=== PATIENT | female | born 1990 | race African-American/Black ===

== ENCOUNTER 2024-10-11 22:10 | Emergency (ER) | payer OTHER ==
[2024-10-11] MEDS ORDERED: Sodium Chloride 0.9% 10 ML Syringe FLUSH PRN (22:36)
[2024-10-11] MEDS: HYDROmorphone 0.5 MG/0.5 ML Syringe IVPUSH ONE ×2 (22:58→23:44)
[2024-10-12] MEDS: Take Home: traMADol 50 MG, 4 Tab Pack PO ONE (00:30)
== END 2024-10-12 00:38 | disposition home or self-care (01) ==
LOC: VM.ED 22:10
DX: S49.91XA Unspecified injury of right shoulder and upper arm, initial encounter (principal); Z88.8 Allergy status to other drugs, medicaments and biological substances; V18.0XXA Pedal cycle driver injured in noncollision transport accident in nontraffic accident, initial encounter
CPT/HCPCS: 72125; 73030; 96374; 96376; 99285; A9270

== ENCOUNTER 2024-10-15 21:57 | Emergency (ER) | payer SELFPAY ==
[2024-10-15] MEDS ORDERED: Ketorolac 30 MG/ML SDV IM ONE (22:09)
[2024-10-15] MEDS: Take Home: traMADol 50 MG, 4 Tab Pack PO ONE (22:20)
== END 2024-10-15 22:26 | disposition home or self-care (01) ==
LOC: VM.ED 21:57
DX: S43.101A Unspecified dislocation of right acromioclavicular joint, initial encounter (principal); Z88.8 Allergy status to other drugs, medicaments and biological substances; V18.0XXA Pedal cycle driver injured in noncollision transport accident in nontraffic accident, initial encounter
CPT/HCPCS: 99283; A9270

== ENCOUNTER 2024-11-01 21:57 | Emergency (ER) | payer SELFPAY ==
[2024-11-01] MEDS ORDERED: Ketorolac 30 MG/ML SDV IM ONE (22:16)
[2024-11-01] MEDS: traMADol 50 MG Tab PO ONE (22:49)
[2024-11-01] MEDS: Take Home: traMADol 50 MG, 4 Tab Pack PO ONE (23:43)
== END 2024-11-01 23:48 | disposition home or self-care (01) ==
LOC: VM.ED 21:57
DX: S43.101A Unspecified dislocation of right acromioclavicular joint, initial encounter (principal); Z88.6 Allergy status to analgesic agent; W22.8XXA Striking against or struck by other objects, initial encounter
CPT/HCPCS: 73030-RT; 99283; A9270-GY

== ENCOUNTER 2024-11-03 14:57 | Emergency (ER) | payer SELFPAY ==
[2024-11-03] MEDS: Acetaminophen/HYDROcodone 325-5 MG Tab PO ONE (15:13)
[2024-11-03] MEDS: traMADol 50 MG Tab PO ONE (15:19)
== END 2024-11-03 16:24 | disposition home or self-care (01) ==
LOC: VM.ED 14:57
DX: M25.511 Pain in right shoulder (principal); S43.101D Unspecified dislocation of right acromioclavicular joint, subsequent encounter; Z88.6 Allergy status to analgesic agent
CPT/HCPCS: 73200; 99283; A9270

== ENCOUNTER 2025-03-17 19:19 | Emergency (ER) | payer SELFPAY ==
[2025-03-17] MEDS: Acetaminophen/HYDROcodone 325-5 MG Tab PO ONE (19:51)
== END 2025-03-17 21:45 | disposition home or self-care (01) ==
LOC: VM.ED 19:19
DX: S40.011A Contusion of right shoulder, initial encounter (principal); Z88.8 Allergy status to other drugs, medicaments and biological substances; W10.8XXA Fall (on) (from) other stairs and steps, initial encounter
CPT/HCPCS: 73030-RT; 99283; A9270-GY